=== PATIENT | female | born 1960 | race Caucasian/White ===

== ENCOUNTER → 2016-10-20 | Outpatient (CLI) | payer BC ==
[~2016-10-20] MED LIST: ADIPEX-P37.5 MG PO; ALDACTAZIDE 251 TAB PO; ALTACE 10MG TAB10 MG PO; ALTACE 5MG5 MG PO; LEVEMIR100 U/ML SC; LEVOTHYROXINE0.1 MG PO; LEXAPRO20 MG PO; LOTRISONE 0.05%1 CRE TP; METOPROLOL100 MG PO; NOVOLOG 100U100 U/M1 SC; NOVOLOG FLEX100 U/ML SQ; PHENTERMINE37.5 M1 PO; PRISTIQ 50 MG T50 MG PO; PRISTIQ50 M1 PO; SIMVASTATIN20 MG PO; SPIRONOLACTONE1 TA1 PO; SYNTHROID0.1 MG/TAB PO; TOPAMAX 25MG25 M1; TOPROL XL200 MG PO; VITAMIN D50000 I1 PO; WELLBUTRIN XL150 MG PO; ZOCOR 40MG40 MG PO
== END ==
LOC: BHSO 13:49
DX: F41.1 Generalized anxiety disorder (principal)

== ENCOUNTER → 2016-10-20 | Outpatient (CLI) | payer BC ==
[~2016-10-20] VITALS: Ht 154.9 cm; Wt 83.9 kg
[2016-10-20 15:18] VITALS: BP 128/73; PULSE 71
== END ==
LOC: LIGHT 10:31
DX: E10.9 Type 1 diabetes mellitus without complications (principal); E88.81 Metabolic syndrome and other insulin resistance; E03.8 Other specified hypothyroidism; E66.01 Morbid (severe) obesity due to excess calories; Z68.35 Body mass index [BMI] 35.0-35.9, adult; Z79.4 Long term (current) use of insulin; Z90.49 Acquired absence of other specified parts of digestive tract; Z90.12 Acquired absence of left breast and nipple; Z90.710 Acquired absence of both cervix and uterus

== ENCOUNTER → 2016-11-28 | Outpatient (CLI) | payer BC | LOC: BHSO 14:48 | DX: F41.1 Generalized anxiety disorder (principal) ==